=== PATIENT | female | born 1955 | race Caucasian/White ===

== ENCOUNTER 2023-10-28 09:53 | Emergency (ER) | payer OTHER, MEDICARE ==
[2023-10-28 10:15] VITALS: BP 117/69; PULSE 98; RESP 16; TEMP 98; BMI 40.4
== END 2023-10-28 11:05 | disposition home or self-care (01) ==
LOC: FER 09:53
DX: N93.9 Abnormal uterine and vaginal bleeding, unspecified (principal); C51.9 Malignant neoplasm of vulva, unspecified; W18.2XXA Fall in (into) shower or empty bathtub, initial encounter; Y93.89 Activity, other specified
CPT/HCPCS: 99282-25

== ENCOUNTER 2023-11-03 21:59 | Observation (INO) | payer OTHER, MEDICARE ==
[2023-11-03 23:25] LABS: HEMATOCRIT 34.5 % (32.4-45.2); HEMOGLOBIN 11.6 G/dL (10.7-15.3); MCH 28.1 pg (25.7-33.7); MCHC 33.5 g/dl (32.0-36.0); MEAN CELL VOLUME 83.8 fl (80-96); MEAN PLT VOLUME 8.7 fl (7.5-11.1); PLATELET COUNT 336.5 10^3/uL (134-434); RBC 4.12 10^6/uL (3.60-5.2); RDW 16.4 % (11.6-15.6); WHITE BLOOD COUNT 15.8 10^3/uL (4.0-10.8)
[2023-11-03] MEDS: SODIUM CHLORIDE 1,000 ML IV SCH (23:25)
[2023-11-03 23:43] LABS: ALBUMIN 3.5 g/dl (3.4-5.0); BILIRUBIN,TOTAL 0.8 mg/dl (0.2-1); CALCIUM 11.3 mg/dl (8.5-10.1); CREATININE 0.8 mg/dl (0.6-1.3); MAGNESIUM 1.6 mg/dL (1.8-2.4); PHOSPHOROUS 1.9 (2.5-4.9); POTASSIUM 3.4 mmol/L (3.5-5.1); TOT PROT 6.8 g/dl (6.4-8.2)
[2023-11-04] MEDS ORDERED: ACETAMINOPHEN 500 MG TABLET (FP) ONE (00:08)
[2023-11-04] MEDS: ACETAMINOPHEN 500 MG TABLET (FP) PO ONE (00:13)
[2023-11-04] MEDS ORDERED: ONDANSETRON 4 MG/2 ML VIAL IVPUSH PRN (01:00)
[2023-11-04 01:37] LABS: EPI CELLS 3 /uL (0-25.1); HYALINE CASTS 0 /uL (0-3.1); URINE APPEARANCE CLEAR; URINE BACTERIA 116 /uL (0-1359); URINE BILIRUBIN NEGATIVE (NEGATIVE); URINE COLOR ORANGE; URINE GLUCOSE (UA) NEGATIVE (NEGATIVE); URINE KETONE NEGATIVE (NEGATIVE); URINE LEUK ESTERASE 2+ (NEGATIVE); URINE NITRITE NEGATIVE (NEGATIVE); URINE PROTEIN NEGATIVE (NEGATIVE); URINE RBC 3336 /uL (0-23.9); URINE WBC 170 /uL (0-25.8)
[2023-11-04] MEDS: NAPH,MB-DB/K PH,MBDB POWDER PACKET PO ONE (01:48)
[2023-11-04] MEDS: POTASSIUM CHLORIDE ORAL LIQUID 20 MEQ/15 ML PO ONE (01:48)
[2023-11-04] MEDS: MAGNESIUM SULFATE IN WATER 2 GM/50 ML IVPB IVPB ONE (01:48)
[2023-11-04 02:31] VITALS: BMI 41.8
[2023-11-04] MEDS: CEFTRIAXONE 1 GM in DEXTROSE 5%-WATER - 50 ML IVPB SCH (04:03)
[2023-11-04] MEDS: INSULIN ASPART SLIDING SCALE (NOVOLOG) 1 VIAL SQ SCH (06:10)
[2023-11-04 09:19] LABS: INR 1.16 (0.83-1.09); PROTHROMBIN TIME (PATIENT) 13.4 SEC (9.7-13.0)
[2023-11-04 09:21] LABS: ACTIVATED PTT 27.9 SECONDS (25.2-36.5)
[2023-11-04] MEDS: amLODIPine BESYLATE 10 MG TABLET (FP) PO SCH (09:21)
[2023-11-04] MEDS: FENOFIBRIC ACID 135 MG CAP PO SCH (09:21)
[2023-11-04] MEDS: METOPROLOL TARTRATE 25 MG TABLET (FP) PO SCH (09:21)
[2023-11-04] MEDS: ACETAMINOPHEN 1000 MG/100 ML BAG IVPB PRN (09:22)
[2023-11-04 09:39] LABS: BASO % 0.5 % (0-2.0); EOS % 3.9 % (0-4.5); HEMATOCRIT 31.2 % (32.4-45.2); LYMPH % 15.8 % (8-40); MCH 26.4 pg (25.7-33.7); MCHC 32.1 g/dl (32.0-36.0); MEAN CELL VOLUME 82.4 fl (80-96); MEAN PLT VOLUME 8.3 fl (7.5-11.1); MONO % 10.8 % (3.8-10.2); PLATELET COUNT 306 10^3/uL (134-434); RBC 3.79 M/mm3 (3.60-5.2); RDW 15.5 % (11.6-15.6); WHITE BLOOD COUNT 11.3 K/mm3 (4.0-10.0)
[2023-11-04 09:46] LABS: CALCIUM 10.7 mg/dl (8.5-10.1); CREATININE 0.8 mg/dl (0.6-1.3); MAGNESIUM 2.2 mg/dL (1.8-2.4); POTASSIUM 3.6 mmol/L (3.5-5.1)
[2023-11-04] MEDS: DOCUSATE SODIUM 100 MG CAPSULE (FP) PO PRN (12:54)
[2023-11-04] MEDS: traMADol HCL 50 MG TABLET PO PRN (16:10)
[2023-11-04] MEDS: SODIUM CHLORIDE 1,000 ML IV SCH (20:28)
[2023-11-05 08:03] VITALS: BP 119/64; PULSE 78; RESP 18; TEMP 98.8
[2023-11-05 08:35] LABS: ALBUMIN 2.9 g/dl (3.4-5.0); BILIRUBIN,TOTAL 0.7 mg/dl (0.2-1); CALCIUM 10.7 mg/dl (8.5-10.1); CREATININE 0.7 mg/dl (0.6-1.3); POTASSIUM 3.1 mmol/L (3.5-5.1); TOT PROT 5.8 g/dl (6.4-8.2)
[2023-11-05] MEDS: amLODIPine BESYLATE 10 MG TABLET (FP) PO SCH (09:51)
[2023-11-05] MEDS: LIDOCAINE HCL 2% JELLY 11 ML TP ONE (09:51)
[2023-11-05] MEDS: POTASSIUM CHLORIDE TABS 20 MEQ TABLET.ER (FP) PO ONE (09:52)
[2023-11-05] MEDS ORDERED: POTASSIUM CHLORIDE ORAL LIQUID 20 MEQ/15 ML PO ONE (09:57)
[2023-11-05 11:35] LABS: BASO % 0.8 % (0-2.0); EOS % 3.4 % (0-4.5); HEMATOCRIT 31.8 % (32.4-45.2); HEMOGLOBIN 10.5 GM/dL (10.7-15.3); LYMPH % 9.8 % (8-40); MCH 27.1 pg (25.7-33.7); MCHC 33.1 g/dl (32.0-36.0); MEAN CELL VOLUME 81.9 fl (80-96); MEAN PLT VOLUME 8.4 fl (7.5-11.1); MONO % 8.5 % (3.8-10.2); NEUT % 77.5 % (42.8-82.8); PLATELET COUNT 319 10^3/uL (134-434); RBC 3.88 M/mm3 (3.60-5.2); RDW 15.8 % (11.6-15.6); WHITE BLOOD COUNT 10.1 K/mm3 (4.0-10.0)
== END 2023-11-05 11:32 | disposition home or self-care (01) ==
LOC: FER 21:59 → FM/S 11-04 00:22
PROVIDERS: ADMIT Internal Medicine; ATTEND Internal Medicine
PROC: 3E033NZ Introduction of Analgesics, Hypnotics, Sedatives into Peripheral Vein, Percutaneous Approach (ICD-10-PCS; principal; 2023-11-04)
PROC: 3E03329 Introduction of Other Anti-infective into Peripheral Vein, Percutaneous Approach (ICD-10-PCS; 2023-11-04)
PROC: 3E033GC Introduction of Other Therapeutic Substance into Peripheral Vein, Percutaneous Approach (ICD-10-PCS; 2023-11-04)
PROC: 3E0337Z Introduction of Electrolytic and Water Balance Substance into Peripheral Vein, Percutaneous Approach (ICD-10-PCS; 2023-11-04)
DX: R41.82 Altered mental status, unspecified (principal); G89.3 Neoplasm related pain (acute) (chronic); E11.9 Type 2 diabetes mellitus without complications; I10 Essential (primary) hypertension; Z90.79 Acquired absence of other genital organ(s); C68.9 Malignant neoplasm of urinary organ, unspecified; C78.00 Secondary malignant neoplasm of unspecified lung; E83.52 Hypercalcemia; N39.0 Urinary tract infection, site not specified; R10.2 Pelvic and perineal pain
CPT/HCPCS: 0241U-QW; 36415; 70450-TC; 71045-TC-FY; 80048; 80053; 81003; 82310; 82962; 83735; 83970; 84100; 85025; 85027; 85610; 85730; 87086; 93005; 96361; 96365; 96367; 96375; 97116-GP; 99285-25; G0378; J0131

== ENCOUNTER 2023-11-06 10:26 | Day surgery (SDC) | payer OTHER, MEDICARE ==
[2023-11-06] MEDS: SODIUM CHLORIDE 1,000 ML IV ONE (11:30)
[2023-11-06] MEDS ORDERED: POTASSIUM CHLORIDE TABS 20 MEQ TABLET.ER (FP) PO SCH (13:30)
[2023-11-06] MEDS: POTASSIUM CHLORIDE TABS 20 MEQ TABLET.ER (FP) PO ONE (13:58)
[2023-11-06] MEDS: FOSAPREPITANT DIMEGLUMINE 150 MG in SODIUM CHLORIDE 145 ML IVPB ONE (13:58)
[2023-11-06] MEDS: PALONOSETRON HCL 0.25 MG/5 ML VIAL IVPUSH ONE (14:38)
[2023-11-06] MEDS: DEXAMETHASONE SODIUM PHOSPHATE 10 MG in SODIUM CHLORIDE 50 ML IVPB ONE (14:42)
[2023-11-06 14:51] VITALS: RESP 18; TEMP 98.9
[2023-11-06] MEDS: MANNITOL IV ONE (15:01)
[2023-11-06] MEDS: SODIUM CHLORIDE IV ONE (15:01)
[2023-11-06] MEDS: CISPLATIN IV ONE (15:01)
[2023-11-06] MEDS: POTASSIUM CHLORIDE 10 MEQ, MAGNESIUM SULFATE 1 GM in SODIUM CHLORIDE 500 ML IV ONE (16:18)
[2023-11-06] MEDS: POTASSIUM CHLORIDE TABS 20 MEQ TABLET.ER (FP) PO SCH (16:20)
[2023-11-06 17:32] VITALS: BP 121/43; PULSE 76
== END 2023-11-06 17:49 | disposition home or self-care (01) ==
LOC: J7W 10:26 → JONCCHEMO 10:26
PROVIDERS: ATTEND Internal Medicine Hematology & Oncology
DX: Z51.11 Encounter for antineoplastic chemotherapy (principal); C51.9 Malignant neoplasm of vulva, unspecified
CPT/HCPCS: 96367; 96375; 96413; J1453; J2469

== ENCOUNTER 2023-11-11 13:03 | Emergency (ER) | payer OTHER, MEDICARE ==
[2023-11-11 13:25] VITALS: BP 158/69; PULSE 65; RESP 18; TEMP 99.5; BMI 31.7
== END 2023-11-11 16:22 | disposition home or self-care (01) ==
LOC: FER 13:03
DX: M79.605 Pain in left leg (principal)
CPT/HCPCS: 72100-TC-FY; 73502-TC-LT-FY; 93971-TC; 99284-25

== ENCOUNTER 2023-11-13 10:34 | Day surgery (SDC) | payer OTHER, MEDICARE ==
[2023-11-13 11:02] VITALS: TEMP 98.5
[2023-11-13] MEDS: SODIUM CHLORIDE 500 ML IV ONE (11:16)
[2023-11-13] MEDS: FOSAPREPITANT DIMEGLUMINE 150 MG in SODIUM CHLORIDE 145 ML IVPB ONE (11:48)
[2023-11-13] MEDS: PALONOSETRON HCL 0.25 MG/5 ML VIAL IVPUSH ONE (12:15)
[2023-11-13] MEDS: DEXAMETHASONE SODIUM PHOSPHATE 10 MG in SODIUM CHLORIDE 50 ML IVPB ONE (12:15)
[2023-11-13] MEDS ORDERED: NAPH,MB-DB/K PH,MBDB POWDER PACKET PO ONE (12:23)
[2023-11-13] MEDS: SODIUM CHLORIDE IV ONE (12:41)
[2023-11-13] MEDS: CISPLATIN IV ONE (12:41)
[2023-11-13] MEDS: MANNITOL IV ONE (12:41)
[2023-11-13] MEDS: MAGNESIUM SULFATE IN WATER 2 GM/50 ML IVPB IVPB ONE (14:00)
[2023-11-13] MEDS: SODIUM CHLORIDE 0.9%/KCL 20 MEQ/1,000 ML INFUS.BAG IV ONE (14:06)
[2023-11-13] MEDS: NAPH,MB-DB/K PH,MBDB POWDER PACKET PO ONE (16:09)
[2023-11-13 16:43] VITALS: PULSE 75
[2023-11-13 17:04] VITALS: BP 124/52; RESP 20
[2023-11-14 13:08] LABS: PARATHYROID HORM INTACT 9 pg/mL (15-65)
[2023-11-18 14:08] LABS: PARATHYROID RELATED PROTEIN < 2.0 pmol/L (.)
== END 2023-11-13 16:15 | disposition home or self-care (01) ==
LOC: JONCCHEMO 10:34 → J7W 10:35 → JONCCHEMO 16:15
PROVIDERS: ATTEND Internal Medicine Hematology & Oncology
DX: Z51.11 Encounter for antineoplastic chemotherapy (principal); C51.9 Malignant neoplasm of vulva, unspecified
CPT/HCPCS: 36415; 82306; 82397; 83970; 84100; 96367; 96375; 96413; J1453; J2469

== ENCOUNTER 2023-11-18 09:06 | Inpatient (IN) | payer OTHER, MEDICARE ==
[2023-11-18] MEDS ORDERED: CYCLOBENZAPRINE HCL 10 MG TABLET (FP) ONE ×2 (11:17→22:46)
[2023-11-18] MEDS ORDERED: HYDROmorphone HCl 2 MG/ML VIAL ONE ×2 (11:18→17:34)
[2023-11-18] MEDS: CYCLOBENZAPRINE HCL 10 MG TABLET (FP) PO ONE (11:25)
[2023-11-18] MEDS: HYDROmorphone HCl 2 MG/ML VIAL IVPUSH ONE (11:25)
[2023-11-18 11:34] LABS: BASO % 0.5 % (0-2.0); EOS % 2.8 % (0-4.5); HEMATOCRIT 32.5 % (32.4-45.2); HEMOGLOBIN 10.7 GM/dL (10.7-15.3); LYMPH % 7.2 % (8-40); MCH 26.7 pg (25.7-33.7); MCHC 32.9 g/dl (32.0-36.0); MEAN CELL VOLUME 81.2 fl (80-96); MEAN PLT VOLUME 7.6 fl (7.5-11.1); MONO % 7.5 % (3.8-10.2); PLATELET COUNT 278 10^3/uL (134-434); RDW 15.8 % (11.6-15.6); WHITE BLOOD COUNT 13.9 K/mm3 (4.0-10.0)
[2023-11-18 12:02] LABS: POTASSIUM 3.6 mmol/L (3.5-5.1)
[2023-11-18 12:03] LABS: CALCIUM 9.7 mg/dL (8.5-10.1)
[2023-11-18 12:04] LABS: ALBUMIN 2.2 g/dl (3.4-5.0); BLOOD UREA NITROGEN 12.8 mg/dL (7-18)
[2023-11-18 12:08] LABS: BILIRUBIN,TOTAL 0.5 mg/dL (0.2-1); TOT PROT 5.9 g/dl (6.4-8.2)
[2023-11-18] MEDS: HYDROmorphone HCl 2 MG/ML VIAL IVPB ONE (17:38)
[2023-11-18] MEDS ORDERED: FENTANYL PATCH WASTE TD PRN (17:43)
[2023-11-18] MEDS ORDERED: DOCUSATE SODIUM 100 MG CAPSULE (FP) PO PRN (17:43)
[2023-11-18] MEDS ORDERED: HYDROmorphone HCL 2 MG TABLET PO PRN ×2 (17:44→17:52)
[2023-11-18] MEDS ORDERED: HYDROmorphone HCl 2 MG/ML VIAL IVPUSH PRN (17:57)
[2023-11-18] MEDS: oxyCODONE HCL 5 MG TABLET PO SCH (18:40)
[2023-11-18] MEDS: fentaNYL 12mcg/hr PATCH.TD72 TD SCH (20:16)
[2023-11-18] MEDS ORDERED: ONDANSETRON 8 MG TABLET (FP) PO ONE (22:47)
[2023-11-18] MEDS ORDERED: FAMOTIDINE 20 MG TABLET ONE (22:47)
[2023-11-18] MEDS: ONDANSETRON *ODT* 4 MG TABLET SL SCH (22:57)
[2023-11-18] MEDS: CELECOXIB 100 MG CAPSULE PO SCH (22:57)
[2023-11-18] MEDS: FAMOTIDINE 20 MG TABLET PO SCH (22:57)
[2023-11-18] MEDS: CYCLOBENZAPRINE HCL 5 MG TABLET PO SCH (22:57)
[2023-11-18] MEDS: INSULIN ASPART SLIDING SCALE (NOVOLOG) 1 VIAL SQ SCH (22:57)
[2023-11-19 00:44] VITALS: BMI 43.0
[2023-11-19 08:33] LABS: HEMATOCRIT 27.4 % (32.4-45.2); HEMOGLOBIN 9.5 GM/dL (10.7-15.3); MCH 27.6 pg (25.7-33.7); MCHC 34.5 g/dl (32.0-36.0); MEAN PLT VOLUME 7.6 fl (7.5-11.1); PLATELET COUNT 231 10^3/uL (134-434); RBC 3.43 M/mm3 (3.60-5.2); RDW 15.9 % (11.6-15.6); WHITE BLOOD COUNT 8.5 K/mm3 (4.0-10.0)
[2023-11-19 08:44] LABS: POTASSIUM 3.5 mmol/L (3.5-5.1)
[2023-11-19 08:55] LABS: ALBUMIN 1.9 g/dl (3.4-5.0); CALCIUM 9.1 mg/dL (8.5-10.1)
[2023-11-19 08:56] LABS: BLOOD UREA NITROGEN 10.1 mg/dL (7-18); MAGNESIUM 1.6 mg/dL (1.8-2.4)
[2023-11-19 08:58] LABS: CREATININE 0.7 mg/dL (0.55-1.3)
[2023-11-19 08:59] LABS: PHOSPHOROUS 2.8 mg/dL (2.5-4.9)
[2023-11-19 09:00] LABS: BILIRUBIN,TOTAL 0.5 mg/dL (0.2-1)
[2023-11-19] MEDS ORDERED: ENOXAPARIN NA (PORCINE) 40 MG/0.4 ML DISP.SYRIN SQ SCH (10:00)
[2023-11-19] MEDS: PANTOPRAZOLE 40 MG TABLET PO SCH (10:01)
[2023-11-19] MEDS: RIVAROXABAN 10 MG TABLET PO SCH (10:01)
[2023-11-19] MEDS: amLODIPine BESYLATE 10 MG TABLET (FP) PO SCH (10:04)
[2023-11-19] MEDS: FENOFIBRIC ACID 135 MG CAP PO SCH (10:07)
[2023-11-19] MEDS ORDERED: INSULIN (NOVOLOG) ASPART 100 UNITS/ML 10ML VIAL ONE ×2 (11:06→21:00)
[2023-11-19] MEDS: MAGNESIUM OXIDE 400 MG TABLET (FP) PO ONE (11:10)
[2023-11-19] MEDS: MAGNESIUM SULF 50% (8.12 MEQ/2 ML-1 GM VIAL) IVPB ONE (11:10)
[2023-11-19] MEDS ORDERED: PIPERACILLIN/TAZOB 3.375 GM 3.375 GM in DEXTROSE 5%-WATER - 50 ML IVPB ONE (13:02)
[2023-11-19] MEDS ORDERED: PIPERACILLIN/TAZOBACTAM 3.375 GM VIAL IVPB ONE (13:33)
[2023-11-19] MEDS: PIPERACILLIN/TAZOB 3.375 GM 3.375 GM in DEXTROSE 5%-WATER - 50 ML IVPB ONE (13:36)
[2023-11-19] MEDS: PIPERACILLIN/TAZOB 3.375 GM 3.375 GM in DEXTROSE 5%-WATER - 50 ML IVPB SCH (17:15)
[2023-11-20 08:02] LABS: BASO % 0.7 % (0-2.0); EOS % 6.2 % (0-4.5); HEMATOCRIT 32.5 % (32.4-45.2); HEMOGLOBIN 10.6 GM/dL (10.7-15.3); LYMPH % 16.1 % (8-40); MCH 26.7 pg (25.7-33.7); MCHC 32.7 g/dl (32.0-36.0); MEAN CELL VOLUME 81.5 fl (80-96); MEAN PLT VOLUME 7.7 fl (7.5-11.1); MONO % 7.3 % (3.8-10.2); NEUT % 69.7 % (42.8-82.8); PLATELET COUNT 315 10^3/uL (134-434); RBC 3.99 M/mm3 (3.60-5.2); RDW 16.2 % (11.6-15.6); WHITE BLOOD COUNT 10.1 K/mm3 (4.0-10.0)
[2023-11-20 08:37] LABS: POTASSIUM 3.6 mmol/L (3.5-5.1)
[2023-11-20 08:41] LABS: CALCIUM 9.9 mg/dL (8.5-10.1)
[2023-11-20 08:42] LABS: BLOOD UREA NITROGEN 7.8 mg/dL (7-18)
[2023-11-20 08:46] LABS: TOT PROT 6.3 g/dl (6.4-8.2)
[2023-11-20 08:51] LABS: BILIRUBIN,TOTAL 0.6 mg/dL (0.2-1)
[2023-11-20 08:53] LABS: ALBUMIN 2.4 g/dl (3.4-5.0)
[2023-11-20] MEDS ORDERED: INSULIN (NOVOLOG) ASPART 100 UNITS/ML 10ML VIAL ONE ×2 (11:51→21:33)
[2023-11-20] MEDS ORDERED: FENTANYL PATCH WASTE TD PRN (17:36)
[2023-11-20] MEDS ORDERED: oxyCODONE HCL 5 MG TABLET PO PRN (17:38)
[2023-11-20] MEDS: oxyCODONE HCL 5 MG TABLET PO PRN (18:36)
[2023-11-20] MEDS: fentaNYL 25mcg/hr PATCH.TD72 TD SCH (18:47)
[2023-11-20] MEDS: DOCUSATE SODIUM 100 MG CAPSULE (FP) PO SCH (21:56)
[2023-11-21 08:11] LABS: BASO % 0.6 % (0-2.0); EOS % 6.7 % (0-4.5); HEMATOCRIT 28.4 % (32.4-45.2); HEMOGLOBIN 9.4 GM/dL (10.7-15.3); LYMPH % 12.1 % (8-40); MEAN CELL VOLUME 81.9 fl (80-96); MEAN PLT VOLUME 7.6 fl (7.5-11.1); MONO % 9.7 % (3.8-10.2); NEUT % 70.9 % (42.8-82.8); PLATELET COUNT 261 10^3/uL (134-434); RBC 3.47 M/mm3 (3.60-5.2); RDW 16.2 % (11.6-15.6); WHITE BLOOD COUNT 6.7 K/mm3 (4.0-10.0)
[2023-11-21 08:45] LABS: POTASSIUM 3.6 mmol/L (3.5-5.1)
[2023-11-21 08:49] LABS: CALCIUM 8.9 mg/dL (8.5-10.1)
[2023-11-21 08:50] LABS: BLOOD UREA NITROGEN 6.7 mg/dL (7-18); MAGNESIUM 1.9 mg/dL (1.8-2.4)
[2023-11-21 08:53] LABS: CREATININE 0.9 mg/dL (0.55-1.3)
[2023-11-21 08:54] LABS: BILIRUBIN,TOTAL 0.6 mg/dL (0.2-1)
[2023-11-21 08:55] LABS: TOT PROT 5.3 g/dl (6.4-8.2)
[2023-11-21] MEDS ORDERED: PROPOFOL 20 ML ONE ×2 (10:06→11:54)
[2023-11-21] MEDS ORDERED: MIDAZOLAM HCL 2 MG/2 ML SINGLE DOSE VIAL ONE (10:06)
[2023-11-21] MEDS: GELATIN SPONGE,ABSORBABLE 1 GM PACKET TP ONE (10:39)
[2023-11-21] MEDS ORDERED: PROMETHAZINE HCL 25 MG/1 ML VIAL IVPB PRN (11:04)
[2023-11-21] MEDS: ACETAMINOPHEN 1000 MG/100 ML BAG IVPB ONE (12:07)
[2023-11-21] MEDS ORDERED: ACETAMINOPHEN INJECTION 100 ML IVPB ONE (12:07)
[2023-11-21] MEDS ORDERED: FENTANYL PATCH WASTE TD PRN ×2 (12:48)
[2023-11-21] MEDS ORDERED: oxyCODONE HCL 5 MG TABLET PO PRN (12:48)
[2023-11-21] MEDS ORDERED: FENTANYL PATCH WASTE MC PRN (12:48)
[2023-11-21] MEDS: LACTATED RINGERS SOLUTION 1,000 ML IV SCH ×2 (12:50→13:35)
[2023-11-21] MEDS: oxyCODONE HCL 5 MG TABLET PO PRN (14:29)
[2023-11-21] MEDS: ONDANSETRON *ODT* 4 MG TABLET SL SCH (14:30)
[2023-11-21] MEDS: CYCLOBENZAPRINE HCL 5 MG TABLET PO SCH (14:30)
[2023-11-21] MEDS: PIPERACILLIN/TAZOB 3.375 GM 3.375 GM in DEXTROSE 5%-WATER - 50 ML IVPB ONE (16:13)
[2023-11-21] MEDS ORDERED: INSULIN (NOVOLOG) ASPART 100 UNITS/ML 10ML VIAL ONE (16:55)
[2023-11-21] MEDS: INSULIN ASPART SLIDING SCALE (NOVOLOG) 1 VIAL SQ SCH (17:31)
[2023-11-21] MEDS: RIVAROXABAN 10 MG TABLET PO SCH (17:31)
[2023-11-21] MEDS: PIPERACILLIN/TAZOB 3.375 GM 3.375 GM in DEXTROSE 5%-WATER - 50 ML IVPB SCH (17:31)
[2023-11-21] MEDS: FAMOTIDINE 20 MG TABLET PO SCH (21:25)
[2023-11-21] MEDS: DOCUSATE SODIUM 100 MG CAPSULE (FP) PO SCH (21:25)
[2023-11-21] MEDS: CELECOXIB 100 MG CAPSULE PO SCH (21:33)
[2023-11-22 02:37] VITALS: RESP 18
[2023-11-22 08:54] LABS: BASO % 0.5 % (0-2.0); EOS % 5.3 % (0-4.5); HEMATOCRIT 28.9 % (32.4-45.2); HEMOGLOBIN 9.6 GM/dL (10.7-15.3); LYMPH % 12.4 % (8-40); MCH 27.2 pg (25.7-33.7); MCHC 33.3 g/dl (32.0-36.0); MEAN CELL VOLUME 81.8 fl (80-96); MEAN PLT VOLUME 7.6 fl (7.5-11.1); MONO % 9.7 % (3.8-10.2); NEUT % 72.1 % (42.8-82.8); PLATELET COUNT 275 10^3/uL (134-434); RBC 3.53 M/mm3 (3.60-5.2); RDW 16.9 % (11.6-15.6); WHITE BLOOD COUNT 7.2 K/mm3 (4.0-10.0)
[2023-11-22] MEDS: FENOFIBRIC ACID 135 MG CAP PO SCH (09:13)
[2023-11-22] MEDS: PANTOPRAZOLE 40 MG TABLET PO SCH (09:13)
[2023-11-22] MEDS: amLODIPine BESYLATE 10 MG TABLET (FP) PO SCH (09:13)
[2023-11-22] MEDS: BISACODYL 5 MG TABLET.DR (FP) PO ONE (09:38)
[2023-11-22 09:41] LABS: CALCIUM 9.2 mg/dL (8.5-10.1)
[2023-11-22 09:42] LABS: BLOOD UREA NITROGEN 7.6 mg/dL (7-18); MAGNESIUM 1.7 mg/dL (1.8-2.4)
[2023-11-22 09:43] LABS: ALBUMIN 2.1 g/dl (3.4-5.0)
[2023-11-22 09:46] LABS: CREATININE 0.8 mg/dL (0.55-1.3); TOT PROT 5.5 g/dl (6.4-8.2)
[2023-11-22 09:47] LABS: BILIRUBIN,TOTAL 0.6 mg/dL (0.2-1)
[2023-11-22] MEDS ORDERED: INSULIN (NOVOLOG) ASPART 100 UNITS/ML 10ML VIAL ONE (18:46)
[2023-11-23 09:24] LABS: BASO % 0.7 % (0-2.0); EOS % 6.9 % (0-4.5); HEMATOCRIT 27.8 % (32.4-45.2); HEMOGLOBIN 9.3 GM/dL (10.7-15.3); LYMPH % 11.8 % (8-40); MCH 27.3 pg (25.7-33.7); MCHC 33.4 g/dl (32.0-36.0); MEAN CELL VOLUME 81.8 fl (80-96); MEAN PLT VOLUME 7.3 fl (7.5-11.1); MONO % 9.3 % (3.8-10.2); NEUT % 71.3 % (42.8-82.8); PLATELET COUNT 250 10^3/uL (134-434); RDW 16.7 % (11.6-15.6); WHITE BLOOD COUNT 5.6 K/mm3 (4.0-10.0)
[2023-11-23] MEDS ORDERED: PIPERACILLIN/TAZOBACTAM 3.375 GM VIAL IVPB ONE (09:33)
[2023-11-23 09:40] LABS: POTASSIUM 3.7 mmol/L (3.5-5.1)
[2023-11-23 09:45] LABS: CALCIUM 9.5 mg/dL (8.5-10.1); MAGNESIUM 1.8 mg/dL (1.8-2.4)
[2023-11-23 09:50] LABS: BILIRUBIN,TOTAL 0.7 mg/dL (0.2-1); TOT PROT 5.3 g/dl (6.4-8.2)
[2023-11-23 09:51] LABS: BLOOD UREA NITROGEN 6.6 mg/dL (7-18); CREATININE 0.7 mg/dL (0.55-1.3)
[2023-11-23] MEDS: BISACODYL 5 MG TABLET.DR (FP) PO PRN (10:01)
[2023-11-23 10:05] VITALS: BP 111/90; PULSE 98; TEMP 98
[2023-11-23] MEDS ORDERED: fentaNYL 25mcg/hr PATCH.TD72 TD SCH (17:45)
== END 2023-11-23 12:00 | DRG 803 ==
LOC: JER 09:06 → J8W 13:16 → UNDOADMOB 16:28 → JERBED 16:28 → J8W 23:22 → UNDOADMOB 11-19 12:56 → J8W 11-19 12:56
PROVIDERS: ADMIT Internal Medicine; ATTEND Internal Medicine
PROC: 0Y960ZX Drainage of Left Inguinal Region, Open Approach, Diagnostic (ICD-10-PCS; 2023-11-21)
PROC: 07BJ0ZX Excision of Left Inguinal Lymphatic, Open Approach, Diagnostic (ICD-10-PCS; principal; 2023-11-21 10:00)
DX: L04.9 Acute lymphadenitis, unspecified (principal); C78.00 Secondary malignant neoplasm of unspecified lung; Z68.41 Body mass index [BMI] 40.0-44.9, adult; L02.214 Cutaneous abscess of groin; M79.89 Other specified soft tissue disorders; I10 Essential (primary) hypertension; E11.9 Type 2 diabetes mellitus without complications; Z79.84 Long term (current) use of oral hypoglycemic drugs; C51.9 Malignant neoplasm of vulva, unspecified; E66.01 Morbid (severe) obesity due to excess calories; G62.82 Radiation-induced polyneuropathy; Y84.2 Radiological procedure and radiotherapy as the cause of abnormal reaction of the patient, or of later complication, without mention of misadventure at the time of the procedure
CPT/HCPCS: 0241U-QW; 36415; 72131-TC; 72192-TC; 73590-TC-LT-FY; 73610-TC-LT-FY; 73630-TC-LT; 80053; 82962; 83735; 84100; 85025; 85027; 85651; 86140; 87070; 87186; 87205; 87635; 88305-TC; 93970-TC; 94760; 97116-GP; 97161-GP; 99285-25; J0131; Q0162

== ENCOUNTER 2023-11-26 09:20 | Emergency (ER) | payer OTHER, MEDICARE ==
[2023-11-26 09:47] VITALS: RESP 16; BMI 41.5
[2023-11-26] MEDS ORDERED: ACETAMINOPHEN INJECTION 100 ML IVPB ONE (09:52)
[2023-11-26] MEDS: ACETAMINOPHEN 1000 MG/100 ML BAG IVPB ONE (10:21)
[2023-11-26 10:25] LABS: VENOUS BASE EXCESS 4.7 mmol/L (-2-2); VENOUS O2 SATURATION 66.8 % (70-80); VENOUS PCO2 47.6 mmHg (38-52); VENOUS PH 7.418 (7.310-7.410)
[2023-11-26 10:34] LABS: BASO % 0.4 % (0-2.0); EOS % 6.2 % (0-4.5); HEMATOCRIT 33.2 % (32.4-45.2); HEMOGLOBIN 10.6 GM/dL (10.7-15.3); LYMPH % 10.8 % (8-40); MCH 26.1 pg (25.7-33.7); MEAN CELL VOLUME 81.8 fl (80-96); MEAN PLT VOLUME 7.9 fl (7.5-11.1); NEUT % 73.6 % (42.8-82.8); PLATELET COUNT 272 10^3/uL (134-434); RBC 4.06 M/mm3 (3.60-5.2); RDW 16.5 % (11.6-15.6); WHITE BLOOD COUNT 7.7 K/mm3 (4.0-10.0)
[2023-11-26 10:39] LABS: INR 1.15 (0.83-1.09); PROTHROMBIN TIME (PATIENT) 13.3 SEC (9.7-13.0)
[2023-11-26 10:42] LABS: ACTIVATED PTT 28.4 SECONDS (25.2-36.5)
[2023-11-26 11:00] LABS: POTASSIUM 4.4 mmol/L (3.5-5.1)
[2023-11-26 11:04] LABS: CALCIUM 10.9 mg/dL (8.5-10.1)
[2023-11-26 11:05] LABS: ALBUMIN 2.1 g/dl (3.4-5.0); BLOOD UREA NITROGEN 7.6 mg/dL (7-18); MAGNESIUM 1.7 mg/dL (1.8-2.4)
[2023-11-26 11:07] LABS: PHOSPHOROUS 2.8 mg/dL (2.5-4.9)
[2023-11-26 11:08] LABS: BILIRUBIN,TOTAL 0.6 mg/dL (0.2-1); CREATININE 0.7 mg/dL (0.55-1.3); TOT PROT 5.9 g/dl (6.4-8.2)
[2023-11-26 11:38] LABS: N-TERMINAL BNP 212.2 pg/ml (5-125)
[2023-11-26] MEDS ORDERED: MAGNESIUM SULFATE IN WATER 2 GM/50 ML IVPB IVPB ONE (14:15)
[2023-11-26] MEDS: MAGNESIUM SULFATE IN WATER 2 GM/50 ML IVPB IVPB ONE (14:20)
[2023-11-26 15:08] VITALS: TEMP 98.4
[2023-11-26 18:12] VITALS: BP 139/58; PULSE 86
== END 2023-11-26 18:19 | disposition short-term general hospital (02) ==
LOC: JER 09:20
PROC: 3E033GC Introduction of Other Therapeutic Substance into Peripheral Vein, Percutaneous Approach (ICD-10-PCS; principal; 2023-11-26)
PROC: 3E033NZ Introduction of Analgesics, Hypnotics, Sedatives into Peripheral Vein, Percutaneous Approach (ICD-10-PCS; 2023-11-26)
DX: C78.01 Secondary malignant neoplasm of right lung (principal); C78.02 Secondary malignant neoplasm of left lung; R07.2 Precordial pain; C51.9 Malignant neoplasm of vulva, unspecified; Z20.822 Contact with and (suspected) exposure to COVID-19
CPT/HCPCS: 0241U-QW; 36415; 71045-TC-FY; 71275-TC; 80053; 82803; 83690; 83735; 83880; 84100; 84443; 84484; 85025; 85610; 85730; 86850; 86900; 86901; 93005; 93010; 99291; J0131; Q9967

== ENCOUNTER 2023-12-14 13:04 | Inpatient (IN) | payer OTHER, MEDICARE ==
[2023-12-14 13:24] VITALS: BMI 37.6
[2023-12-14 14:09] LABS: BASO % 0.6 % (0-2.0); EOS % 1.2 % (0-4.5); HEMATOCRIT 30.6 % (32.4-45.2); HEMOGLOBIN 10.2 GM/dL (10.7-15.3); LYMPH % 6.7 % (8-40); MCH 26.4 pg (25.7-33.7); MCHC 33.2 g/dl (32.0-36.0); MEAN CELL VOLUME 79.5 fl (80-96); MEAN PLT VOLUME 7.9 fl (7.5-11.1); MONO % 6.3 % (3.8-10.2); NEUT % 85.2 % (42.8-82.8); PLATELET COUNT 481 10^3/uL (134-434); RBC 3.84 M/mm3 (3.60-5.2); RDW 18.3 % (11.6-15.6); WHITE BLOOD COUNT 15.8 K/mm3 (4.0-10.0)
[2023-12-14 14:09] LABS: VENOUS BASE EXCESS 3.9 mmol/L (-2-2); VENOUS O2 SATURATION 84.6 % (70-80); VENOUS PCO2 45.8 mmHg (38-52); VENOUS PH 7.422 (7.310-7.410)
[2023-12-14 14:18] LABS: INR 1.32 (0.83-1.09); PROTHROMBIN TIME (PATIENT) 15.3 SEC (9.7-13.0)
[2023-12-14 14:21] LABS: ACTIVATED PTT 25.1 SECONDS (25.2-36.5)
[2023-12-14 14:24] LABS: POTASSIUM 3.5 mmol/L (3.5-5.1)
[2023-12-14 14:26] LABS: BLOOD UREA NITROGEN 11.6 mg/dL (7-18); CALCIUM 10.7 mg/dL (8.5-10.1)
[2023-12-14 14:27] LABS: ALBUMIN 1.9 g/dl (3.4-5.0)
[2023-12-14 14:30] LABS: CREATININE 0.6 mg/dL (0.55-1.3)
[2023-12-14 14:31] LABS: BILIRUBIN,TOTAL 1.1 mg/dL (0.2-1); TOT PROT 6.3 g/dl (6.4-8.2)
[2023-12-14] MEDS ORDERED: DIPHTH,PERTUSS(ACELL),TET 0.5 ML DISP.SYRIN IM ONE (15:22)
[2023-12-14] MEDS: DIPHTH,PERTUSS(ACELL),TET 0.5 ML DISP.SYRIN IM ONE (15:41)
[2023-12-14] MEDS: SODIUM CHLORIDE 0.9% 500 ML INFUS.BAG IV ONE ×2 (15:43→17:48)
[2023-12-14] MEDS ORDERED: AZITHROMYCIN IVPB 500 MG/250 ML BAG IVPB ONE (16:06)
[2023-12-14] MEDS ORDERED: ACETAMINOPHEN INJECTION 100 ML IVPB ONE (16:06)
[2023-12-14] MEDS ORDERED: PIPERACILLIN/TAZOB 4.5 GM 4.5 GM/100 ML BAG IVPB ONE (16:06)
[2023-12-14] MEDS: ACETAMINOPHEN 1000 MG/100 ML BAG IVPB ONE (16:17)
[2023-12-14] MEDS: PIPERACILLIN/TAZOB 4.5 GM 4.5 GM in DEXTROSE 5%-WATER 100 ML IVPB ONE (16:17)
[2023-12-14] MEDS: AZITHROMYCIN IVPB 500 MG in DEXTROSE 5%-WATER - 250 ML IVPB ONE (16:31)
[2023-12-14] MEDS ORDERED: VANCOMYCIN 1 GRAM (PRE-DOCKED) 1,000 MG/250 ML BAG IVPB ONE (17:01)
[2023-12-14] MEDS: VANCOMYCIN 1,000 MG in DEXTROSE 5%-WATER - 250 ML IVPB ONE (18:24)
[2023-12-14] MEDS ORDERED: oxyCODONE HCL 5 MG TABLET ONE (21:45)
[2023-12-14] MEDS: oxyCODONE HCL 5 MG TABLET PO PRN (21:48)
[2023-12-15] MEDS ORDERED: FUROSEMIDE 40 MG/4 ML INJECTABLE VIAL IVPUSH ONE (01:55)
[2023-12-15] MEDS: SODIUM CHLORIDE 0.9% 500 ML INFUS.BAG IV ONE (03:00)
[2023-12-15] MEDS: SODIUM CHLORIDE 1,000 ML IV SCH (03:28)
[2023-12-15] MEDS: PIPERACILLIN/TAZOB 4.5 GM 4.5 GM in DEXTROSE 5%-WATER 100 ML IVPB SCH ×2 (03:34→14:29)
[2023-12-15] MEDS: FUROSEMIDE 40 MG/4 ML INJECTABLE VIAL IVPUSH ONE (03:34)
[2023-12-15] MEDS: ZOLEDRONIC ACID 4 MG in SODIUM CHLORIDE 100 ML IVPB ONE (04:32)
[2023-12-15] MEDS: INSULIN ASPART SLIDING SCALE (NOVOLOG) 1 VIAL SQ SCH (06:31)
[2023-12-15 07:54] LABS: BASO % 0.4 % (0-2.0); EOS % 2.4 % (0-4.5); HEMATOCRIT 32.5 % (32.4-45.2); HEMOGLOBIN 10.2 GM/dL (10.7-15.3); LYMPH % 4.4 % (8-40); MCH 25.6 pg (25.7-33.7); MCHC 31.3 g/dl (32.0-36.0); MEAN CELL VOLUME 81.8 fl (80-96); MEAN PLT VOLUME 7.8 fl (7.5-11.1); MONO % 5.4 % (3.8-10.2); NEUT % 87.4 % (42.8-82.8); PLATELET COUNT 397 10^3/uL (134-434); RBC 3.97 M/mm3 (3.60-5.2); RDW 18.6 % (11.6-15.6); WHITE BLOOD COUNT 13.5 K/mm3 (4.0-10.0)
[2023-12-15 08:10] LABS: POTASSIUM 3.1 mmol/L (3.5-5.1)
[2023-12-15 08:12] LABS: ALBUMIN 1.8 g/dl (3.4-5.0); BLOOD UREA NITROGEN 8.2 mg/dL (7-18); CALCIUM 10.6 mg/dL (8.5-10.1); MAGNESIUM 1.6 mg/dL (1.8-2.4)
[2023-12-15 08:16] LABS: CREATININE 0.6 mg/dL (0.55-1.3); PHOSPHOROUS 2.2 mg/dL (2.5-4.9)
[2023-12-15 08:17] LABS: TOT PROT 6.2 g/dl (6.4-8.2)
[2023-12-15] MEDS: ENOXAPARIN NA (PORCINE) 40 MG/0.4 ML DISP.SYRIN SQ SCH (09:38)
[2023-12-15] MEDS: ASPIRIN COATED 81 MG TABLET.EC PO SCH (09:38)
[2023-12-15] MEDS: FAMOTIDINE 20 MG TABLET PO SCH (09:38)
[2023-12-15] MEDS ORDERED: FENTANYL PATCH WASTE TD PRN (11:17)
[2023-12-15] MEDS: fentaNYL 12mcg/hr PATCH.TD72 TD SCH (12:08)
[2023-12-15] MEDS: VANCOMYCIN/WATER FOR INJ (PEG) 1,000 MG/200 ML BAG IVPB SCH (12:32)
[2023-12-15] MEDS: NAPH,MB-DB/K PH,MBDB POWDER PACKET PO ONE (14:29)
[2023-12-15] MEDS: MAGNESIUM SULF 50% (8.12 MEQ/2 ML-1 GM VIAL) IVPB ONE (14:30)
[2023-12-15] MEDS: METOPROLOL TARTRATE 25 MG TABLET (FP) PO SCH (21:57)
[2023-12-16 08:24] LABS: BASO % 0.5 % (0-2.0); EOS % 2.9 % (0-4.5); HEMOGLOBIN 9.7 GM/dL (10.7-15.3); LYMPH % 5.6 % (8-40); MCH 25.4 pg (25.7-33.7); MCHC 31.3 g/dl (32.0-36.0); MEAN CELL VOLUME 81.4 fl (80-96); MEAN PLT VOLUME 7.8 fl (7.5-11.1); MONO % 7.2 % (3.8-10.2); NEUT % 83.8 % (42.8-82.8); PLATELET COUNT 445 10^3/uL (134-434); RBC 3.81 M/mm3 (3.60-5.2); RDW 18.7 % (11.6-15.6); WHITE BLOOD COUNT 17.7 K/mm3 (4.0-10.0)
[2023-12-16 08:27] LABS: CHLORIDE 101 mmol/L (98-107); SODIUM 134 mmol/L (136-145)
[2023-12-16 08:35] LABS: ALBUMIN 1.6 g/dl (3.4-5.0); GLUCOSE,RANDOM 179 mg/dL (74-106)
[2023-12-16 08:37] LABS: BLOOD UREA NITROGEN 4.8 mg/dL (7-18); CALCIUM 9.9 mg/dL (8.5-10.1); CO2 29 mmol/L (21-32); MAGNESIUM 1.7 mg/dL (1.8-2.4)
[2023-12-16 08:39] LABS: CREATININE 0.5 mg/dL (0.55-1.3); SGOT/AST 19 U/L (15-37); SGPT/ALT 9 U/L (13-61)
[2023-12-16 08:40] LABS: PHOSPHOROUS 1.8 mg/dL (2.5-4.9)
[2023-12-16 08:41] LABS: BILIRUBIN,TOTAL 0.8 mg/dL (0.2-1); TOT PROT 5.6 g/dl (6.4-8.2)
[2023-12-16 08:42] LABS: ALK PHOS 88 U/L (45-117); ANION GAP 4 mmol/L (4-13); POTASSIUM 2.6 mmol/L (3.5-5.1)
[2023-12-16] MEDS: amLODIPine BESYLATE 10 MG TABLET (FP) PO SCH (10:14)
[2023-12-16] MEDS: MAGNESIUM SULF 50% (8.12 MEQ/2 ML-1 GM VIAL) IVPB ONE ×2 (10:22→18:25)
[2023-12-16] MEDS: KCL 10 MEQ IVPB 10 MEQ/100 ML INFUS.BAG IVPB SCH ×2 (10:25→18:23)
[2023-12-16] MEDS: NAPH,MB-DB/K PH,MBDB POWDER PACKET PO ONE ×2 (10:27→17:50)
[2023-12-16] MEDS: POTASSIUM CHLORIDE ORAL LIQUID 20 MEQ/15 ML PO ONE ×2 (10:29→15:18)
[2023-12-16] MEDS ORDERED: ACETAMINOPHEN 1000 MG/100 ML BAG IVPB PRN (13:23)
[2023-12-16] MEDS: NAPH,MB-DB/K PH,MBDB POWDER PACKET PO SCH (15:21)
[2023-12-16 15:56] LABS: POTASSIUM 3.2 mmol/L (3.5-5.1)
[2023-12-16 15:57] LABS: BLOOD UREA NITROGEN 5.4 mg/dL (7-18); MAGNESIUM 2.4 mg/dL (1.8-2.4)
[2023-12-16 16:00] LABS: CREATININE 0.5 mg/dL (0.55-1.3); PHOSPHOROUS 1.8 mg/dL (2.5-4.9)
[2023-12-17 08:20] LABS: POTASSIUM 3.2 mmol/L (3.5-5.1)
[2023-12-17 08:32] LABS: ALBUMIN 1.6 g/dl (3.4-5.0); BLOOD UREA NITROGEN 6.2 mg/dL (7-18); CALCIUM 9.6 mg/dL (8.5-10.1)
[2023-12-17 08:34] LABS: HEMATOCRIT 31.9 % (32.4-45.2); MCH 25.5 pg (25.7-33.7); MCHC 31.5 g/dl (32.0-36.0); MEAN CELL VOLUME 81.1 fl (80-96); MEAN PLT VOLUME 7.8 fl (7.5-11.1); PLATELET COUNT 467 10^3/uL (134-434); RBC 3.93 M/mm3 (3.60-5.2); RDW 18.8 % (11.6-15.6); WHITE BLOOD COUNT 23.6 K/mm3 (4.0-10.0)
[2023-12-17 08:35] LABS: CREATININE 0.5 mg/dL (0.55-1.3); PHOSPHOROUS 2.1 mg/dL (2.5-4.9); TOT PROT 5.7 g/dl (6.4-8.2)
[2023-12-17 08:37] LABS: BILIRUBIN,TOTAL 0.7 mg/dL (0.2-1)
[2023-12-17 09:25] LABS: ANISOCYTOSIS 2+; MACROCYTOSIS 0
[2023-12-17] MEDS: POTASSIUM CHLORIDE TABS 20 MEQ TABLET.ER (FP) PO SCH (09:43)
[2023-12-17] MEDS ORDERED: LIDOCAINE 1%/EPI 1:100000 (20 ML MULTI DOSE VIAL) ONE (11:26)
[2023-12-17 13:21] LABS: BF WBC & OTHER NUCLEATED CELLS 422 /mm3; BODY FLUID MONOCYTE 22 %; BODYL FLD EOSINOPHIL 3 %
[2023-12-17] MEDS: methylPREDNISolone NA SUCC 40 MG/1 ML VIAL IVPUSH ONE (15:59)
[2023-12-17] MEDS ORDERED: ALBUTEROL SO4 2.5/IPRATROPIUM 0.5 INH SOL 3 ML VIAL.NEB. NEB PRN (17:12)
[2023-12-18] MEDS: HYDROmorphone HCl 2 MG/ML VIAL IVPUSH STA (17:54)
[2023-12-19] MEDS: HYDROmorphone HCl 2 MG/ML VIAL IVPB PRN (13:19)
[2023-12-19 17:08] LABS: BODY FLUID ALBUMIN 1.7 g/dL (Not Estab.)
[2023-12-19] MEDS: ACETAMINOPHEN 1000 MG/100 ML BAG IVPB ONE (18:13)
[2023-12-19] MEDS ORDERED: PNEUMOC 20-VAL CONJ-DIP CRM/PF 0.5 ML SYRINGE IM ONE (21:00)
[2023-12-20] MEDS: ACETAMINOPHEN 325 MG SUPP.RECT RC PRN (10:23)
[2023-12-20 14:51] VITALS: BP 114/66; PULSE 133; RESP 21; TEMP 101.2
== END 2023-12-20 17:15 | DRG 180 ==
LOC: JER 13:04 → JERBED 18:17 → J4S 23:11
PROVIDERS: ADMIT Internal Medicine; ATTEND Internal Medicine
PROC: 0W9B30Z Drainage of Left Pleural Cavity with Drainage Device, Percutaneous Approach (ICD-10-PCS; principal; 2023-12-17)
DX: C78.00 Secondary malignant neoplasm of unspecified lung (principal); G93.41 Metabolic encephalopathy; J85.0 Gangrene and necrosis of lung; J96.01 Acute respiratory failure with hypoxia; C77.9 Secondary and unspecified malignant neoplasm of lymph node, unspecified; J91.0 Malignant pleural effusion; E87.1 Hypo-osmolality and hyponatremia; J98.11 Atelectasis; E11.9 Type 2 diabetes mellitus without complications; I10 Essential (primary) hypertension; E78.00 Pure hypercholesterolemia, unspecified; C51.9 Malignant neoplasm of vulva, unspecified; S80.812A Abrasion, left lower leg, initial encounter; E83.52 Hypercalcemia; R29.6 Repeated falls; E83.42 Hypomagnesemia; R41.0 Disorientation, unspecified; E83.39 Other disorders of phosphorus metabolism; E87.6 Hypokalemia; Z86.718 Personal history of other venous thrombosis and embolism; E66.9 Obesity, unspecified; Z68.37 Body mass index [BMI] 37.0-37.9, adult; W18.30XA Fall on same level, unspecified, initial encounter; Y92.099 Unspecified place in other non-institutional residence as the place of occurrence of the external cause; Y99.9 Unspecified external cause status
CPT/HCPCS: 0241U-QW; 32550; 36415; 70450-TC; 71045-TC-FY; 71275-TC; 74177-TC; 80048; 80053; 82042; 82150; 82465; 82550; 82803; 82945; 82962; 83605; 83615; 83735; 83880; 83986; 84100; 84157; 84478; 84484; 85025; 85610; 85730; 86480; 86850; 86900; 86901; 87040; 87070; 87075; 87102; 87116; 87205; 87206; 87210; 87899; 88108; 88305-TC; 90715; 93005; 93010; 99285-25; G0463-25; G0480; J0131; J3489